=== PATIENT | male | born 1980 | race Caucasian/White ===

== ENCOUNTER 2019-01-28 05:52 | Emergency (ER) | payer MEDICAID ==
[~2019-01-28] VITALS: Ht 157.5 cm; Wt 79.5 kg
[2019-01-28] MEDS ORDERED: LIDOCAINE 1%/EPI 1:200,000/PF 10 ML VIAL INJ ONE (07:00)
[2019-01-28 07:40] VITALS: BP 129/92
== END 2019-01-28 07:41 | disposition home or self-care (01) ==
LOC: EMS 05:53
DX: T16.1XXA Foreign body in right ear, initial encounter (principal); F17.210 Nicotine dependence, cigarettes, uncomplicated; X58.XXXA Exposure to other specified factors, initial encounter; Y93.89 Activity, other specified; Y92.89 Other specified places as the place of occurrence of the external cause; Y99.8 Other external cause status
CPT/HCPCS: 69200; J3490